=== PATIENT | female | born 1935 | race Caucasian/White ===

== ENCOUNTER 2019-02-17 20:01 | Emergency (ER) | payer MEDICARE ==
--- OUTSIDE RECORDS SUMMARY | 2019-02-17 20:31 | XMS REPORT | Continuity of Care Document ---
:1935 External Reference #:[id number] Author Name Glenis Mohr Care Team Providers Name Role Phone Nishant Shea MD Primary Care Physician Unavailable Payers Date Identification Numbers Payment Provider Subscriber Expires: 2016 Policy Number: [id number] Medicare [employer] PayID: [id number] [address] [place] [address] Expires: 2016 Policy Number: [id number] [employer] Seb Gonz[employer] Group Number: [id number] [address] Group Name: [place] [address] PayID: [id number] Effective: 2016 Policy Number: [id number] [employer] Group Number: [id number] [address] PayID: [id number] [place] [address] Problems Active Problems Provider Date Cervical spondylosis with myelopathy Wilver Tai M.D. Onset: 05/02/2013 Low back pain Wilver Tai M.D. Onset: 05/02/2013 Benign essential hypertension Marjan Weston M.D. Onset: 08/21/2013 Pure hypercholesterolemia Marjan Weston M.D. Onset: 08/21/2013 Obesity Marjan Weston M.D. Onset: 08/21/2013 Spinal stenosis in cervical region Wilver Tai M.D. Onset: 09/11/2013 Chronic pain syndrome Wilver Tai M.D. Onset: 09/11/2013 Prosthetic arthroplasty of the hip Sylvie Beatty M.D. Onset: 05/06/2016 Cervical spondylosis without myelopathy Hardik Baird M.D. Onset: 11/11/2016 Obstructive sleep apnea syndrome Fatimah Soto MD Onset: 04/20/2017 Family History Date Family Member(s) Observation Comments General Heart Disease General Hypertension General Stroke Father Heart Disease Father due to IN () Mother due to IN () Mother due to lung problems () Social History Type Date Description Comments Sex Unknown Marital Status Lives With spouse Occupation Retired Tobacco Use Start: Unknown End: Former Cigarette Smoker 1 30 years Pack Daily Smoking Status Reviewed: 02/06/19 Former Cigarette Smoker 1 30 years Pack Daily ETOH Use Consumes 1 glass of wine per day Tobacco Use Start: Unknown End: Patient is a former smoker Unknown Recreational Drug Use Denies Drug Use Exercise Type/Frequency Exercises regularly Allergies, Adverse Reactions, Alerts Active Allergies Reaction Severity Comments Date Lyrica Urticaria 02/22/2013 Clonidine patch rash, the pill form as well 08/19/2016 Gabapentin 02/22/2018 Medications Active Medications SIG Qnty Indications Ordering Provider Date Levothyroxine Sodium 1 by mouth every Unknown day 88mcg Tablets Zolpidem Tartrate 1 tab at bedtime Unknown 5mg for sleep Tablets Aspirin Adult Low Dose 1 by mouth every Unknown day 81mg Tablets Tramadol HCL 1-2 tabs qhs Nishant Shea MD 50mg Tablets Tylenol Extra Strength 4-5tabs by mouth Unknown qhs 500mg Tablets Benadryl 1 tab by mouth at Unknown 50mg Tablets night as needed Omeprazole 1 by mouth every Unknown 20mg Capsules day DR Amoxicillin take 4 pills, 2 g Unknown 500mg 1 hour before Capsules dental or gi procedure Vitamin D3 Complete 1 by mouth every Unknown day (during winter Tablets ) Ibuprofen 1 tab by mouth Unknown 800mg Tablets every 8 hours as needed with food Lisinopril Take 1 Tablet By Unknown 10mg Tablets Mouth Every Day Rosuvastatin Calcium 1/2 tab daily Nishant Shea MD 20mg Tablets Calcium 600 1 by mouth every Unknown 600mg Tablets day Vitamin B Complex 1 by mouth every Unknown day Tablets History Medications Avapro 1 by mouth every Walsh, 10/17/2015 - 150mg Tablets day LUNA Arroyo 12/28/2016 Gabapentin 1 by mouth every 90caps Hardik Canales 05/14/2015 - 100mg Capsules night at bedtime Tasha Echavarria 10/23/2015 for 3 days then 2 by mouth every night at bedtime for 1 week then 3 by mouth qhs Tramadol HCL 1 by mouth every 40tabs Tana 11/13/2014 - 50mg Tablets 4-6 hour as needed Dave 05/13/2015 Tasha Super B/C 1 cap po daily Hardik Canales 11/07/2013 - Capsules Tasha Echavarria 10/22/2015 Aspirin Ec Low Dose 1 po qd Hardik Canales 02/22/2013 - 81mg Tasha Echavarria 12/28/[address] Iron 1 by mouth every Unknown - Tablets day 02/05/2016 Vitamin C 1 by mouth every Unknown - 500mg Capsules day 11/09/2016 Calcium + D3 1 by mouth every Unknown - [id number] day 12/28/2016 Tablets Zoloft 1 by mouth every Ida, - 50mg Tablets day MD Victor M 06/03/2016 B Complex 1 tablet po daily Unknown - prn 12/28/2016 Probiotic Unknown - 06/03/2016 Iron 1 po qd Unknown - 45mg 11/02/2016 Vitamin B12 1 by mouth every Unknown - 1000mcg Tablets ER day prn 12/28/2016 Vitamin D3 1 by mouth every Unknown - 1000Unit Chewtabs day 12/28/2016 Fish Oil 1 po qd Unknown - 1200mg 11/09/2016 Clonidine HCL apply one patch Unknown - 0.1mg/24HR once per week 08/18/2016 Patches Weekly Amoxicillin take 2000mg prior Unknown - 500mg Tablets to dental surgery 11/10/2016 Malik Acidophilus daily Unknown - Probiotic 12/28/2016 Clonidine HCL 1 by mouth qd Unknown - 0.1mg Tablets 11/10/2016 Avapro 1 by mouth every Unknown - 150mg Tablets day Unknown Irbesartan 1 by mouth every Unknown - 150mg Tablets day Unknown Escitalopram Oxalate 1 by mouth every Unknown - 5mg day 01/07/2017 Tablets Simvastatin 1/2 tab by mouth Unknown - 20mg Tablets every day Unknown Ambien 1 per day Unknown - 5mg Tablets Unknown Vitamin C 1 by mouth every Unknown - [id number] day as needed 06/05/2018 Capsules Vitamin B12 take one Unknown - Tablets Sub capsule/tablet 06/05/2018 daily sublingually GNP Nasal [place] 1 drop in each Unknown - 0.05% Solution nostril twice a 06/05/2018 day Sucralfate 1 by mouth every Unknown - 1gm Tablets day Unknown Diphenhydramine HCL take by mouth one Unknown - 50mg hour before ct Unknown Capsules scan Atorvastatin Calcium take 1 tablet at Unknown - 20mg bedtime Unknown Tablets Amoxicillin take 1 tab by Unknown - 500mg Tablets mouth every 12 06/05/2018 hours Escitalopram Oxalate 1/2 po qd 30tabs Unknown - 5mg 05/02/2014 Tablets Levothyroxine Sodium 1 po qd 90tabs Unknown - 88mcg 05/15/2014 Tablets Zolpidem Tartrate 1 tab at bedtime 30tabs Unknown - 5mg Tablets 12/28/2016 Irbesartan 1 by mouth every 90tabs aMrjan Weston, - 300mg Tablets day M.D. 10/29/2014 Tylenol/Codeine #3 prn pain Unknown - 06/28/2013 Tylenol Extra Strength 3-4 tablet po at 100tab Unknown - 500mg bedtime for pain s 12/28/2016 Tablets Multivitamins 1 capsule carlos;y 30caps Unknown - Capsules 12/28/2016 Vitamin B Complex 1 po qd 30tabs Unknown - Tablets 06/28/2013 Vitamin B12 1 po qd Unknown - 1000mcg Tablets ER 05/02/2014 Vitamin D po occasional 30caps Unknown - 1000Unit Capsules 10/23/2015 Tramadol HCL 1-3 tablets qhs M54.5 Unknown - 50mg Tablets 12/28/2016 Atorvastatin Calcium take 1 tablet at 90tabs Unknown - 20mg bedtime 08/18/2013 Tablets Omeprazole 1 po qd 90caps Unknown - 20mg Capsules DR 11/02/2016 Atorvastatin 1 po qd 30tabs Unknown - 40mg Tablets 09/02/2014 Diphenhydramine HCL take one capsule 2caps Unknown - 50mg qd 09/04/2014 Capsules Vitamin C/Jeannie Hips 1 po qd Unknown - 1000mg 11/07/2013 Tablets Fish Oil 1 po qd 90caps Unknown - 1000mg Capsules 10/29/2014 Levothyroxine Sodium 1 tab po daily Unknown - 100mcg 12/28/2016 Tablet Escitalopram Oxalate 1 tab by mouth Unknown - 5mg every day 02/05/2016 Tablets Methylprednisolone 1 ML as directed Unknown - Acetate 05/13/2015 80mg/ml Diphenhydramine HCL take one capsule Unknown - 50mg by mouth at 12/28/2016 Capsules bedtime Simvastatin 1 by mouth every Nishant Shea MD - 20mg Tablets day 12/28/2016 Avapro one by mouth daily Neirynck, - 300mg Capsules MACKENZIE Parada 02/05/2016 Sulfamethoxazole/Trimetho 1 by mouth twice a Unknown - prim DS day 10/22/2015 800-160mg Tablets Amoxicillin 4 tablets 1 hour Unknown - 500mg Capsules before dental work 02/05/2016 Ibuprofen as needed Unknown - 800mg Capsules 12/28/2016 Vitamin B12 1 by mouth every Unknown - 1000mcg Tablets day 02/05/2016 Medications Administered in Office Medication SIG Qnty Indications Ordering Provider Date Inj, Regadenoson, 0.1 MG Mj Hernadez Acosta, M.D., 06/12/2016 Injection PETER ZIMMER Technetium TC 99M Mj Acosta M.D., 06/12/2016 Tetrofosmin, Per Unit Dose FACPETER Doe Up To 40 Millicuries Injection Vital Signs Date Vital Result Comment 02/06/2019 12:51pm Height 67.75 inches 5'7.75" Weight 168.00 lb BP Systolic Sitting 126 mmHg BP Diastolic Sitting 70 mmHg Pain Level 6 BMI (Body Mass Index) 25.7 kg/m2 11/30/2018 10:29am Height 67.75 inches 5'7.75" Weight 168.25 lb Heart Rate 78 /min BP Systolic Sitting 150 mmHg BP Diastolic Sitting 86 mmHg Respiratory Rate 18 /min BMI (Body Mass Index) 25.8 kg/m2 06/06/2018 11:21am Height 67.75 inches 5'7.75" Weight 173.00 lb Heart Rate 70 /min BP Systolic Sitting 158 mmHg Lue reg cuff BP Diastolic Sitting 70 mmHg Lue reg cuff Respiratory Rate 16 /min O2 % BldC Oximetry 96 % On Ra BMI (Body Mass Index) 26.5 kg/m2 05/04/2018 10:50am Weight 176.00 lb Heart Rate 96 /min BP Systolic Sitting 170 mmHg BP Diastolic Sitting 96 mmHg Respiratory Rate 18 /min Body Temperature 97.9 F 02/22/2018 11:35am Height 67.75 inches 5'7.75" Weight 179.00 lb Heart Rate 76 /min BP Systolic 140 mmHg BP Diastolic 78 mmHg Respiratory Rate 18 /min Body Temperature 98.9 F BMI (Body Mass Index) 27.4 kg/m2 10/22/2017 3:42pm Height 67.75 inches 5'7.75" Weight 184.25 lb Heart Rate 74 /min BP Systolic 140 mmHg BP Diastolic 90 mmHg BMI (Body Mass Index) 28.2 kg/m2 04/20/2017 10:53am Height 67.75 inches 5'7.75" Weight 188.00 lb Heart Rate 64 /min BP Systolic Sitting 124 mmHg BP Diastolic Sitting 66 mmHg Respiratory Rate 14 /min O2 % BldC Oximetry 98 % BMI (Body Mass Index) 28.8 kg/m2 03/10/2017 10:02am Height 67.75 inches 5'7.75" Weight 186.00 lb Heart Rate 74 /min BP Systolic Sitting 124 mmHg BP Diastolic Sitting 86 mmHg Respiratory Rate 16 /min O2 % BldC Oximetry 96 % room air BMI (Body Mass Index) 28.5 kg/m2 01/07/2017 1:32pm Height 67.75 inches 5'7.75" Weight 191.00 lb Heart Rate 78 /min BP Systolic Sitting 140 mmHg BP Diastolic Sitting 80 mmHg Pain Level 5 BMI (Body Mass Index) 29.3 kg/m2 12/29/2016 11:17am Height 67.75 inches 5'7.75" Weight 190.00 lb Heart Rate 67 /min BP Systolic Sitting 142 mmHg BP Diastolic Sitting 84 mmHg Respiratory Rate 16 /min O2 % BldC Oximetry 96 % BMI (Body Mass Index) 29.1 kg/m2 11/11/2016 4:16pm Height 67.75 inches 5'7.75" Weight 191.00 lb Heart Rate 68 /min BP Systolic Sitting 128 mmHg BP Diastolic Sitting 68 mmHg Respiratory Rate 16 /min Pain Level 2 BMI (Body Mass Index) 29.3 kg/m2 08/19/2016 11:57am Height 67.75 inches 5'7.75" Weight 195.00 lb Heart Rate 72 /min BP Systolic Sitting 120 mmHg BP Diastolic Sitting 82 mmHg Respiratory Rate 14 /min BMI (Body Mass Index) 29.9 kg/m2 05/06/2016 10:03am Height 67.75 inches 5'7.75" Weight 205.00 lb Heart Rate 66 /min BP Systolic 151 mmHg BP Diastolic 73 mmHg BMI (Body Mass Index) 31.4 kg/m2 02/06/2016 12:40pm Height 68 inches 5'8" Weight 202.00 lb with sandals BP Systolic Sitting 144 mmHg La reg cuff BP Diastolic Sitting 100 mmHg La reg cuff BP Systolic Standing 142 mmHg LA reg cuff BP Diastolic Standing 96 mmHg LA reg cuff BMI (Body Mass Index) 30.7 kg/m2 10/23/2015 2:56pm Height 68 inches 5'8" Weight 200.00 lb Heart Rate 76 /min BP Systolic Sitting 120 mmHg BP Diastolic Sitting 88 mmHg Respiratory Rate 14 /min BMI (Body Mass Index) 30.4 kg/m2 05/14/2015 2:04pm Height 68 inches 5'8" Weight 206.00 lb Heart Rate 76 /min BP Systolic Sitting 128 mmHg BP Diastolic Sitting 82 mmHg Respiratory Rate 14 /min BMI (Body Mass Index) 31.3 kg/m2 11/13/2014 11:20am Height 68 inches 5'8" Weight 204.00 lb Pain Level 0 BMI (Body Mass Index) 31.0 kg/m2 10/30/2014 3:47pm Height 68 inches 5'8" Weight 204.00 lb Heart Rate 64 /min BP Systolic Sitting 158 mmHg BP Diastolic Sitting 88 mmHg Respiratory Rate 16 /min BMI (Body Mass Index) 31.0 kg/m2 09/26/2014 10:22am Height 68 inches 5'8" Weight 204.00 lb with shoes Heart Rate 66 /min regular BP Systolic Sitting 148 mmHg left arm reg cuff BP Diastolic Sitting 78 mmHg left arm reg cuff BP Systolic Standing 146 mmHg left arm reg cuff BP Diastolic Standing 76 mmHg left arm reg cuff Respiratory Rate 18 /min BMI (Body Mass Index) 31.0 kg/m2 09/18/2014 12:06pm Height 68 inches 5'8" Weight 204.00 lb Pain Level 0 BMI (Body Mass Index) 31.0 kg/m2 09/05/2014 3:21pm Height 68 inches 5'8" Weight 204.00 lb Heart Rate 64 /min BP Systolic Sitting 144 mmHg Ra reg cuff BP Diastolic Sitting 84 mmHg Ra reg cuff BP Systolic Standing 142 mmHg BP Diastolic Standing 80 mmHg Respiratory Rate 16 /min BMI (Body Mass Index) 31.0 kg/m2 08/22/2014 10:55am Height 68 inches 5'8" Weight 200.00 lb Pain Level 0 BMI (Body Mass Index) 30.4 kg/m2 05/29/2014 12:24pm Height 68 inches 5'8" Weight 200.00 lb Heart Rate 70 /min BP Systolic 152 mmHg BP Diastolic 85 mmHg BMI (Body Mass Index) 30.4 kg/m2 05/29/2014 11:37am Height 67 inches 5'7" 05/15/2014 2:03pm Height 67 inches 5'7" Weight 203.00 lb Heart Rate 68 /min BP Systolic Sitting 180 mmHg BP Diastolic Sitting 90 mmHg Respiratory Rate 68 /min BMI (Body Mass Index) 31.8 kg/m2 11/07/2013 1:45pm Height 67 inches 5'7" Weight 196.00 lb Heart Rate 80 /min BP Systolic Sitting 150 mmHg BP Diastolic Sitting 80 mmHg Respiratory Rate 16 /min BMI (Body Mass Index) 30.7 kg/m2 09/11/2013 2:35pm Height 67 inches 5'7" Weight 198.00 lb BP Systolic 130 mmHg BP Diastolic 80 mmHg Pain Level 1-2 low back, legs BMI (Body Mass Index) 31.0 kg/m2 08/21/2013 1:14pm Height 67 inches 5'7" Weight 195.00 lb without shoes Heart Rate 8074 /min sit and stand HR reg BP Systolic Sitting 172 mmHg R arm reg cuff BP Diastolic Sitting 80 mmHg R arm reg cuff BP Systolic Standing 166 mmHg R arm reg cuff BP Diastolic Standing 72 mmHg R arm reg cuff BP Systolic Recheck 200 mmHg BP Diastolic Recheck 80 mmHg Respiratory Rate 17 /min BMI (Body Mass Index) 30.5 kg/m2 06/28/2013 8:36am Heart Rate 76 /min BP Systolic Sitting 120 mmHg BP Diastolic Sitting 70 mmHg Respiratory Rate 18 /min 06/02/2013 12:55pm Height 68 inches 5'8" Weight 198.00 lb BP Systolic 132 mmHg BP Diastolic 68 mmHg Pain Level 4 left hip/buttock BMI (Body Mass Index) 30.1 kg/m2 05/02/2013 9:12am Height 68 inches 5'8" Weight 198.00 lb BP Systolic 168 mmHg BP Diastolic 78 mmHg Pain Level 6 back BMI (Body Mass Index) 30.1 kg/m2 02/22/2013 1:48pm Heart Rate 52 /min BP Systolic Sitting 140 mmHg BP Diastolic Sitting 82 mmHg Respiratory Rate 15 /min Results Test Date Facility Test Result H/L Range Note Laboratory test 03/19/2016 [facility] Ast (Sgot) 23 U/L N 13- [address] [place] [address] [phone] Lipid Profile 03/19/2016 [facility] Triglycerides 102 mg/dL N 2 (Trig/Chol/HDL) [address] [place] [address] [phone] Cholesterol 179 mg/dL N 3 HDL Cholesterol 69.7 mg/dL N 4 LDL Cholesterol 89 mg/dL N 5 Lipid Profile 09/21/2014 [facility] Triglycerides 87 mg/dL N 6, 7 (Trig/Chol/HDL) [address] [place] [address] [phone] Cholesterol 171 mg/dL N 8 HDL Cholesterol 78.5 mg/dL N 9 LDL Cholesterol 75 mg/dL N 10 Laboratory test 09/11/2014 [facility] Lipoprotein 49 mg/dL Abnormal <=30 [address] [place] [address] [phone] Alt 22 U/L N 7-52 Basic Metabolic Panel 09/11/2014 [facility] Sodium 139 mmol/L N 133-[address] [place] [address] [phone] Potassium 4.6 mmol/L N 3.5-5.0 Chloride 107 mmol/L N 101-111 Co2 Carbon Dioxide 26 mmol/L N 22-32 Anion Gap 6 mmol/L N 2-11 Glucose 93 mg/dL N 70-100 Blood Urea Nitrogen 19 mg/dL N 6-24 Creatinine 0.89 mg/dL N 0.51-0.95 BUN/Creatinine Ratio 21.3 High 8-20 Calcium 9.6 mg/dL N 8.6-10.3 Egfr Non- 61.5 N >60 Egfr 79.1 N >60 12 1 FASTING on zocor 20 Copy Result to: NISHANT SHEA ([id number]) 2 Desirable <150 Borderline high 150-199 High 200-499 Very High >500 3 Desirable <200 Borderline high 200-239 High >239 4 Low <40 Desirable: 40-60 High: >60 5 Desirable: <100 mg/dL Near Optimal: 100-129 mg/dL Borderline High: 130-159 mg/dL High: 160-189 mg/dL Very High: >189 mg/dL 6 FASTING 7 Desirable <150 Borderline high 150-199 High 200-499 Very High >500 8 Desirable <200 Borderline high 200-239 High >239 9 Low <40 Desirable: 40-60 High: >60 10 Desirable <100 Near Optimal 100-129 Borderline high 130-159 High 160-189 Very High >189 11 Test Performed by: [address] [address] Ballistics Expert: Darnell Arizmendi M.D. 12 Because ethnic data is not always readily available, this report includes an eGFR for both -Americans and non- Americans. The National Kidney Disease Education Program (NKDEP) does not endorse the use of the MDRD equation for patients that are not between the ages of 18 and 70, are , have extremes of body size, muscle mass, or nutritional status, or are non- or non-. According to the National Kidney Foundation, irrespective of diagnosis, the stage of the disease is based on the level of kidney function: Stage Description GFR(mL/min/1.73 m(2)) 1 Kidney damage with normal or decreased GFR 90 2 Kidney damage with mild decrease in GFR 60-89 3 Moderate decrease in GFR 30-59 4 Severe decrease in GFR 15-29 5 Kidney failure <15 (or dialysis) Procedures Date Code Description Status 04/13/2017 76754 Spirometry Incl Graphic Record Completed 02/16/2017 60991 Sleep Study Unattended,HRT Rate,Oxygen Sat,Resp Completed Effort/Airflow 12/29/2016 44171 Diffusing Capacity Completed 12/29/2016 26664 Plethysmography Determination Lung Volumes & Per Airway Completed Resist 12/29/2016 08556 Pulmonary Function><Bronchodil Completed 06/12/2016 01994 Stress Test Completed 06/12/2016 81628 Myocardial Perfusion Imaging Tomographic (Spect) Multiple Completed Studies 02/06/2016 85721 EKG Tracing & Interpretation Completed 09/05/2014 61216 EKG Tracing & Interpretation Completed 08/10/2014 84939 Carpal Tunnel Release Completed 08/10/2014 63691 Carpal Tunnel Release Completed 05/29/2014 47719 Rad Exam; Hand Comp Completed 05/29/2014 68316 Rad Exam; Hand Comp Completed 01/25/2014 97777 Nerve Conduction 07-08 Studies Completed 09/14/2013 98341 ECHO Transthoracic, Real-Time 2D With Doppler And Color Completed Flow 08/21/2013 02186 EKG Tracing & Interpretation Completed Encounters Type Date Location Provider Dx Diagnosis Office Visit 02/06/2019 Neurosurgery Cecelia Manjarrez, M47.816 Spondylosis w/ o 1:00p [facility] myelopathy or radiculopathy, lumbar region Office Visit 11/30/2018 [facility] Romario Canales M54.42 Lumbago with 10:45a [facility] Echavarria M.D. sciatica, left side Office Visit 06/06/2018 Pulmonology And Fatimah Soto, G47.33 Obstructive sleep 11:30a Sleep Services Of [facility] lauren (adult) [facility] (pediatric) J98.4 Other disorders of lung Office Visit 05/04/2018 [facility] Kelly Anthony R10.9 Unspecified 11:00a [facility] Mcdaniel MD abdominal pain Office Visit 02/22/2018 [facility] Warren Perez K80.10 Calculus of 11:30a [facility] [place] M.D. gallbladder w chronic cholecyst w/o obstruction Office Visit 10/22/2017 Neurohospitalist Hardik Canales M47.816 Spondylosis w/o 3:30p Clinic naty Echavarria or Tasha radiculopathy, lumbar region M47.812 Spondylosis w/o myelopathy or radiculopathy, cervical region Office Visit 04/20/2017 10:45a Pulmonology And Fatimah R06.02 Shortness of Sleep Services [facility] breath [facility] R09.89 Oth symptoms and signs involving the circ and resp systems G47.33 Obstructive sleep apnea (adult) (pediatric) Office Visit 03/10/2017 10:00a Pulmonology And Fatimah G47.33 Obstructive sleep Sleep Services Of [facility] apnea (adult) [facility] (pediatric) R09.89 Oth symptoms and signs involving the circ and resp systems R06.02 Shortness of breath Z87.891 Personal history of nicotine dependence Office Visit 01/07/2017 1:00p Neurosurgery Hardik Baird M54.5 Low back pain [facility] [place] Office Visit 12/29/2016 11:30a Pulmonology And Fatimah R06.02 Shortness of Sleep Services Of [facility] breath [facility] R06.83 Snoring R40.0 Somnolence R68.2 Dry mouth, unspecified G89.29 Other chronic pain Office Visit 11/11/2016 Neurosurgery Hardik M47.812 Spondylosis w/o 3:50p Services [facility] Baird M.D. myelopathy or AT [place] radiculopathy, cervical region Office Visit 08/19/2016 [facility] Hardik Canales M47.812 Spondylosis w/o 11:45a [facility] Echavarria M.D. myelopathy or radiculopathy, cervical region Office Visit 05/06/2016 Orthopedic Sylvie Beatty, M25.552 Pain in left hip 10:00a Services Of M.D. C.M.A. M25.551 Pain in right hip Z96.642 Presence of left artificial hip joint M54.5 Low back pain R53.82 Chronic fatigue, unspecified M70.62 Trochanteric bursitis, left hip M70.61 Trochanteric bursitis, right hip Office Visit 02/06/2016 1:00p [facility] Marjan Weston, R06.02 Shortness of Of [employer] Machine Operator M.D. breath I63.9 Cerebral infarction, unspecified I47.1 Supraventricular tachycardia I10 Essential (primary) hypertension E78.0 Pure hypercholesterolemia K21.0 Gastro-esophageal reflux disease with esophagitis Office Visit 10/23/2015 [facility] Hardik Canales M47.812 Spondylosis w/o 2:45p Neurologic Tasha Echavarria myelopathy or Services Of [facility] radiculopathy, cervical region Office Visit 05/14/2015 Bondlauren Canales M47.812 Spondylosis w/o 1:45p Neurologic Tasha Echavarria myelopathy or Services Of [facility] radiculopathy, cervical region N39.42 Incontinence without sensory awareness Office Visit 11/13/2014 Orthopedic Tana V54.89 Aftercare, 11:15a Services Of Tasha Acosta Orthopedic Other C.M.A. Office Visit 10/30/2014 Bondlau[facility] Echavarria, 721.0 Spondylosis 3:30p Neurologic Tasha Cervical W/O Services Of [facility] Myelopathy Office Visit 09/26/2014 [place] Kelley 401.1 Hypertension 10:30a Cardiology Of Benign [employer] Machine Operator 278.00 Obesity Unspec 272.0 Hypercholesterolemia Pure 786.05 Shortness Of Breath Office Visit 09/05/2014 3:30p [facility] Marjan Weston, 401.1 Hypertension Of [employer] Machine Operator M.D. Benign 272.0 Hypercholesterolemia Pure 278.00 Obesity Unspec Office Visit 05/29/2014 11:00a Orthopedic Tana 354.0 Carpal Tunnel Services Of Tasha Acosta Syndrome C.M.A. 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 Cervical W/O Myelopathy 354.0 Carpal Tunnel Syndrome Office Visit 09/11/2013 2:20p Neurosurgery Wilver Alvarez 723.0 Stenosis Spinal [facility] Tai M.D. Cervical Region 338.4 Chronic Pain Syndrome Office Visit 08/21/2013 1:15p [facility] Marjan Weston, 401.1 Hypertension Of [facility] [place] Benign 272.0 Hypercholesterolemia Pure 278.00 Obesity Unspec Office Visit 06/28/2013 8:30a [facility] Romario Canales 723.0 Stenosis Spinal [facility] Echavarria M.D. 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 Cervical W/ Myelopathy Office Visit 05/02/2013 9:20a Neurosurgery Wilver Alvarez 721.1 Spondylosis Services [facility] Tai M.D. 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 Syndrome 724.2 Lumbago Office Visit 05/14/2009 3:30p Neurosurgery Stuart Morales 723.0 Stenosis Spinal [facility] Hernández M.D. Cervical Region 721.0 Spondylosis Cervical W/O Myelopathy Office Visit 05/09/2009 9:00a Radha Morales 723.0 Stenosis Spinal [facility] Hernández M.D. Cervical Region 721.0 Spondylosis Cervical W/O Myelopathy Office Visit 11/14/2007 DO Not Use [place], 780.52 Insomnia 2:15p Tita Navarrete M.D. Unspecified 276.8 Hypopotassemia 401.1 Hypertension Benign 300.00 Anxiety State Unspec Office Visit 11/09/2007 DO Not Use Clarisa 924.10 Contusion Lower Leg 1:45p Tita Varn, N.P. 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 Goiter Other Cause W/O Crisis Or Storm Office Visit 04/15/2007 DO Not Use [place], 785.1 Palpitations 1:45p Tita Navarrete M.D. 401.1 Hypertension Benign Office Visit 03/16/2007 DO Not Use [place], 782.0 Skin Sensation 10:45a Tita Navarrete M.D. Disturbance 627.2 Menopausal Or Female Climacteric State, Symptomatic 401.1 Hypertension Benign Office Visit 02/07/2007 DO Not Use [place], 401.1 Hypertension 10:15a Tita Navarrete M.D. Benign 286.9 Coagulation Defects Other & Unspec 436 Cerebrovascular Disease Acute Ill-Defined 780.52 Insomnia Unspecified Office 10/08/2006 DO Not Use [place], 272.0 Hypercholesterolemia Visit 1:00p Tita Navarrete M.D. Pure 401.1 Hypertension Benign 530.81 Esophageal Reflux Office 08/10/2006 DO Not Use [place], 272.0 Hypercholesterolemia Visit 2:30p Tita Navarrete M.D. Pure 401.1 Hypertension Benign 436 Cerebrovascular Disease Acute Ill-Defined 780.52 Insomnia Unspecified Office Visit 06/18/2006 DO Not Use [place], 401.1 Hypertension 1:30p Tita Navarrete M.D. Benign 272.0 Hypercholesterolemia Pure 436 Cerebrovascular Disease Acute Ill-Defined Office Visit 06/01/2006 DO Not Use [place], 436 Cerebrovascular 4:00p Tita Navarrete M.D. Disease Acute Ill-Defined 401.1 Hypertension Benign 285.9 Anemia Unspec 780.52 Insomnia Unspecified Plan of Treatment Future Appointment(s):03/08/2019 1:30 pm - VIC Blanchard at [facility]06/08/2019 1:45 pm - Fatimah Soto MD at [facility]02/06/2019 - Cecelia Manjarrez, PAM47.816 Spondylosis w/o myelopathy or radiculopathy, lumbar regionFollow up:Follow up in 2 weeks after imaginig completed
--- OUTSIDE RECORDS SUMMARY | 2019-02-17 20:31 | XMS REPORT | Continuity of Care Document ---
:1935 External Reference #:[id number] Author Name Glenis Mohr Care Team Providers Name Role Phone Nishant Shea MD Primary Care Physician Unavailable Payers Date Identification Numbers Payment Provider Subscriber Expires: 2016 Policy Number: [id number] Medicare Aditi Mart Fariba PayID: [id number] [address] [place] [address] Expires: 2016 Policy Number: [id number] [employer] Seb Gonzalezy Group Number: [id number] [address] Group Name: [place] [address] PayID: [id number] Effective: 2016 Policy Number: [id number] [employer] Medicare dAiti Mart Fariba Group Number: [id number] [address] PayID: [id number] [place] [address] Problems Active Problems Provider Date Cervical spondylosis with myelopathy Wilver Tai M.D. Onset: 05/02/2013 Low back pain Wilver Tai M.D. Onset: 05/02/2013 Benign essential hypertension Marjan Weston M.D. Onset: 08/21/2013 Pure hypercholesterolemia Marjan Weston M.D. Onset: 08/21/2013 Obesity Marjan Weston M.D. Onset: 08/21/2013 Spinal stenosis in cervical region iWlver Tai M.D. Onset: 09/11/2013 Chronic pain syndrome Wilver Tai M.D. Onset: 09/11/2013 Prosthetic arthroplasty of the hip Sylvie Beatty M.D. Onset: 05/06/2016 Cervical spondylosis without myelopathy Hardik Baird M.D. Onset: 11/11/2016 Obstructive sleep apnea syndrome Fatimah Soto MD Onset: 04/20/2017 Family History Date Family Member(s) Observation Comments General Heart Disease General Hypertension General Stroke Father Heart Disease Father due to NC () Mother due to NC () Mother due to lung problems () [...] D3 1 by mouth every Unknown - [id number] day 12/28/2016 Tablets Zoloft 1 by mouth [...] C 1 by mouth every Unknown - [phone] day as needed 06/05/2018 Capsules Vitamin B12 take one Unknown - Tablets Sub capsule/tablet 06/05/2018 daily sublingually GNP Nasal Hannah 1 drop in each Unknown - 0.05% [...] 12/28/2016 Irbesartan 1 by mouth every 90tabs Marjan Weston, - 300mg Tablets day M.D. 10/29/2014 [...] Result H/L Range Note Laboratory test 03/19/[address] [facility] Ast (Sgot) 23 U/L N 13- [address] [place] [address] [phone] Lipid Profile 03/19/[address] [facility] Triglycerides 102 mg/dL N 2 (Trig/Chol/HDL) [address] [place] [address] [phone] Cholesterol 179 mg/dL N 3 HDL Cholesterol 69.7 mg/dL N 4 LDL Cholesterol 89 mg/dL N 5 Lipid Profile 09/21/[address] [facility] Triglycerides 87 mg/dL N 6, 7 (Trig/Chol/HDL) [address] [place] [address] [phone] Cholesterol 171 mg/dL N 8 HDL Cholesterol 78.5 mg/dL N 9 LDL Cholesterol 75 mg/dL N 10 Laboratory test 09/11/[address] [facility] Lipoprotein 49 mg/dL Abnormal <=30 [address] [place] [address] [phone] Alt 22 U/L N 7-52 Basic Metabolic Panel 09/11/[address] [facility] Sodium 139 mmol/L N 133-[address] [place] [address] [phone] Potassium 4.6 mmol/L N 3.5-5.0 Chloride 107 [...] zocor 20 Copy Result to: NISHANT SHEA ([id number]) 2 Desirable <150 Borderline high 150-199 High [...] Very High >189 11 Test Performed by: [address] [address] Meter Supervisor: Darnell Arizmendi M.D. 12 Because ethnic data [...] dialysis) Procedures Date Code Description Status 04/13/2017 65655 Spirometry Incl Graphic Record Completed 02/16/2017 64545 Sleep Study Unattended,HRT Rate,Oxygen Sat,Resp Completed Effort/Airflow 12/29/2016 26232 Diffusing Capacity Completed 12/29/2016 69540 Plethysmography Determination Lung Volumes & Per Airway Completed Resist 12/29/2016 77842 Pulmonary Function><Bronchodil Completed 06/12/2016 35629 Stress Test Completed 06/12/2016 81773 Myocardial Perfusion Imaging Tomographic (Spect) Multiple Completed Studies 02/06/2016 87522 EKG Tracing & Interpretation Completed 09/05/2014 58466 EKG Tracing & Interpretation Completed 08/10/2014 71958 Carpal Tunnel Release Completed 08/10/2014 50621 Carpal Tunnel Release Completed 05/29/2014 11384 Rad Exam; Hand Comp Completed 05/29/2014 23851 Rad Exam; Hand Comp Completed 01/25/2014 43676 Nerve Conduction 07-08 Studies Completed 09/14/2013 12175 ECHO Transthoracic, Real-Time 2D With Doppler And Color Completed Flow 08/21/2013 05656 EKG Tracing & Interpretation Completed Encounters Type Date Location Provider Dx Diagnosis Office Visit 11/30/2018 [facility] Hardik Canales M54.42 Lumbago with 10:45a Services Of [facility] Echavarria M.D. sciatica, left side Office Visit 06/06/2018 Pul[facility]ology And Fatimah Soto, G47.33 Obstructive sleep 11:30a Sleep Services Of apnea (adult) [facility] (pediatric) J98.4 Other disorders of lung Office Visit 05/04/2018 [facility] Kelly Anthony R10.9 Unspecified 11:00a Of [facility] Mcdaniel MD abdominal pain Office Visit 02/22/2018 [facility] Warren Mejía80.10 Calculus of 11:30a Of [facility] Hudson M.D. gallbladder w chronic cholecyst w/o obstruction Office Visit 10/22/2017 [facility] Hadrik Canales M47.816 Spondylosis w/o 3:30p Clinic naty Echavarria M.D. radiculopathy, lumbar region M47.812 Spondylosis w/o myelopathy or radiculopathy, cervical region Office Visit 04/20/2017 10:45a Pulmonology And Fatimah R06.02 Shortness of Sleep Services Of MD Charles breath [facility] R09.89 Oth symptoms and signs involving the circ and resp systems G47.33 Obstructive sleep apnea (adult) (pediatric) Office Visit 03/10/2017 10:00a Pulmonology And Fatimah G47.33 Obstructive sleep Sleep Services Of MD Charles apnea (adult) [facility] (pediatric) R09.89 Oth symptoms and signs involving the circ and resp systems R06.02 Shortness of breath Z87.891 Personal history of nicotine dependence Office Visit 01/07/2017 1:00p Neurosurgery Hardik Baird M54.5 Low back pain Services Of [place] Office Visit 12/29/2016 11:30a Pulmonology And Fatimah R06.02 Shortness of Sleep Services Of MD [place] breath [facility] R06.83 Snoring R40.0 Somnolence R68.2 Dry mouth, unspecified G89.29 Other chronic pain Office Visit 11/11/2016 Neurosurgery Hardik M47.812 Spondylosis w/o 3:50p Services Of [facility] Baird M.D. myelopathy or [facility] radiculopathy, cervical region Office Visit 08/19/2016 [facility] Hardik Canales M47.812 Spondylosis w/o 11:45a Services Of [place] Echavarria M.D. myelopathy or radiculopathy, cervical region Office Visit 05/06/2016 Orthopedic Sylvie Beatty, M25.552 Pain in left hip 10:00a Services Of Tasha Heredia M25.551 Pain in right hip Z96.642 Presence of left artificial hip joint M54.5 Low back pain R53.82 Chronic fatigue, unspecified M70.62 Trochanteric bursitis, left hip M70.61 Trochanteric bursitis, right hip Office Visit 02/06/2016 1:00p [facility] Marjan Weston, R06.02 Shortness of Of Logging Crew Supervisor M.D. breath I63.9 Cerebral infarction, unspecified I47.1 Supraventricular tachycardia I10 Essential (primary) hypertension E78.0 Pure hypercholesterolemia K21.0 Gastro-esophageal reflux disease with esophagitis Office Visit 10/23/2015 [facility] Can[place] M47.812 Spondylosis w/o 2:45p Neurologic Tasha Echavarria myelopathy or Services Of [facility] radiculopathy, cervical region Office Visit 05/14/2015 [facility] Can[place] M47.812 Spondylosis w/o 1:45p Romario Echavarria M.D. myelopathy or Services [facility] radiculopathy, cervical region N39.42 Incontinence without sensory awareness Office Visit 11/13/2014 Orth[facility] Tana V54.89 Aftercare, 11:15a Services Of Tasha Acosta Orthopedic Other C.M.A. Office Visit 10/30/2014 [facility] Echav[place]ria, 721.0 Spondylosis 3:30p Neurologic Tasha Cervical W/O Services Of [facility] Myelopathy Office Visit 09/26/2014 [place] VIC Kelley 401.1 Hypertension 10:30a Cardiology Of Benign Logging Crew Supervisor 278.00 Obesity Unspec 272.0 Hypercholesterolemia Pure 786.05 Shortness Of Breath Office Visit 09/05/2014 3:30p [facility] Marjan Weston, 401.1 Hypertension Of Logging Crew Supervisor M.D. Benign 272.0 Hypercholesterolemia Pure 278.00 Obesity Unspec Office Visit 05/29/2014 11:00a Orthopedic Tana 354.0 Carpal Tunnel Services Of Tasha Acosta Syndrome C.M.A. 715.14 Osteoarthrosis Localized Prim Hand Office Visit 05/15/2014 1:45p [facility] Romario Canales 721.0 Spondylosis Services Of [facility] Echavarria M.D. Cervical W/O Myelopathy 354.0 Carpal Tunnel Syndrome Office Visit 11/07/2013 1:45p [facility] Romario Canales 721.0 Spondylosis Services Of [facility] Echavarria M.D. Cervical W/O Myelopathy 354.0 Carpal Tunnel Syndrome Office Visit 09/11/2013 2:20p Neurosurgery Wilver Alvarez 723.0 Stenosis Spinal [facility] Tasha Tai Cervical Region 338.4 Chronic Pain Syndrome Office Visit 08/21/2013 1:15p [facility] Marjan Weston, 401.1 Hypertension Of [facility] Tasha Benign 272.0 Hypercholesterolemia Pure 278.00 Obesity Unspec Office Visit 06/28/2013 8:30a [facility] Romario Canales 723.0 Stenosis Spinal Services Of [facility] Echavarria M.D. 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 Cervical W/ Myelopathy Office Visit 05/02/2013 9:20a Neurosurgery Wilver Alvarez 721.1 Spondylosis Services Of [place] Tai M.D. 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 Syndrome 724.2 Lumbago Office Visit 05/14/2009 3:30p Neurosurgery Stuart Morales 723.0 Stenosis Spinal Services Of [facility] Hernández M.D. Cervical Region 721.0 Spondylosis Cervical W/O Myelopathy Office Visit 05/09/2009 9:00a Neurosurgery Stuart Morales 723.0 Stenosis Spinal Services Of [facility] Hernández M.D. Cervical Region 721.0 Spondylosis Cervical W/O Myelopathy Office Visit 11/14/2007 DO Not Use Lucia, 780.52 Insomnia 2:15p [facility] Navarrete M.D. Unspecified 276.8 Hypopotassemia 401.1 Hypertension Benign 300.00 Anxiety State Unspec Office Visit 11/09/2007 DO Not Use Clarisa 924.10 Contusion Lower Leg 1:45p [facility] Varn, N.P. Office Visit 05/02/2007 DO Not [...] - VIC Blanchard at [facility]06/08/2019 1:45 pm - Fatimah Soto MD at Pulmonology And Sleep [facility]
[2019-02-17 23:23] VITALS: BP 168/64
== END 2019-02-18 01:42 | disposition left against medical advice (07) ==
LOC: ED 20:01
DX: Z53.21 Procedure and treatment not carried out due to patient leaving prior to being seen by health care provider (principal)
CPT/HCPCS: 99282

== ENCOUNTER 2019-06-18 16:00 | Emergency (ER) | payer MEDICARE ==
--- OUTSIDE RECORDS SUMMARY | 2019-06-18 16:07 | XMS REPORT | Continuity of Care Document ---
:1935 External Reference #:[id number] Author Name Rosaline Greenwood PA-C Address [address] [place] [address] Care Team Providers Name Role Phone Nishant Shea MD Care Team Information Clinical Research Administrator [phone] Problems Active Problems Provider Date Essential hypertension Tyrel Jaimes MD Onset: 11/10/2016 Nausea Rosaline Greenwood PA-C Onset: 06/06/2019 Abdominal pain Rosaline Greenwood PA-C Onset: 06/06/2019 Ex-smoker Rosaline Greenwood PA-C Onset: 06/06/2019 Weight decreased Rosaline Greenwood PA-C Onset: 06/06/2019 Epigastric pain Rosaline Greenwood PA-C Onset: 08/22/2018 Right upper quadrant pain Rosaline Greenwood PA-C Onset: 05/19/2018 Constipation Tyrel Jaimes MD Onset: 11/10/2016 Gastroesophageal reflux disease Tyrel Jaimes MD Onset: 11/10/2016 Social History Type Date Description Comments Sex Unknown Tobacco Use Start: Unknown End: Unknown Patient is a former smoker Smoking Status Reviewed: 06/06/19 Patient is a former smoker Allergies, Adverse Reactions, Alerts Active Allergies Reaction Severity Comments Date Gabapentin Other Moderate 05/22/2016 Clonidine rash Moderate 05/11/2019 Lyrica Other Moderate 05/22/2016 Beta Adrenergic Blockers 11/06/2016 Medications Active Medications SIG Qnty Indications Ordering Date Provider Rosuvastatin Calcium hs Unknown 10mg Tablets Lisinopril Daily Unknown 10mg Tablets Amoxicillin 4 tabs at once 1 Unknown 500mg Tablets hour before procedure Diphenhydramine HCL Take 1 capsule Unknown 50mg every day by oral Capsules route. Aspirin 81 Take 1 tablet Unknown 81mg Tablets DR every day by oral route. Tramadol HCL 1-3 tabs daily as Unknown 50mg Tablets needed MDD 3 tabs Acetaminophen Extra take about 2000mg Unknown Strength at night (4-5) 500mg Tablets Levothyroxine Sodium Take 1 tablet Unknown 75mcg every day by oral Tablets route. Lisinopril Take 1 tablet Unknown 10mg Tablets every day by oral route. Zolpidem Tartrate Take 1 tablet Unknown 5mg Tablets every day by oral route. Ibuprofen prn Unknown 600mg Tablets Rosuvastatin Calcium Take 1 tablet Unknown 5mg every day by oral Tablets route. Nucynta not started yet. Unknown 50mg Tablets Fluzone High-Dose Unknown 0.5ml Marika Medications Administered in Office Medication SIG Qnty Indications Ordering Provider Date Influenza Unknown 05/15/2015 Injection Immunizations CPT Code Status Date Vaccine Lot # [id number] Given 08/01/2014 Pneumococcal Conjugate Vaccine 13 Valent For Intramuscular Use 70331 Given 03/10/2012 Tetanus, Diphtheria Toxoids/Acellular Pertussis Vaccine 7 Or > U-PneuC Given 05/25/2002 Pneumococcal Conj,Unspecified 93323 Given 05/25/2002 Pneumovax Vital Signs Date Vital Result Comment 06/06/2019 10:47am Height 68 inches 5'8" Weight 159.00 lb BP Systolic 131 mmHg BP Diastolic 83 mmHg Heart Rate 81 /min BMI (Body Mass Index) 24.2 kg/m2 08/22/2018 1:54pm Height 68 inches 5'8" Weight 178.00 lb BP Systolic 156 mmHg BP Diastolic 78 mmHg Heart Rate 76 /min BMI (Body Mass Index) 27.1 kg/m2 Results Test Acquired Date Facility Test Result H/L Range Note Basic Metabolic Panel 06/07/2019 [facility] Sodium 140 mmol/L Normal 135-145 Potassium 4.6 mmol/L Normal 3.5-5.0 Chloride 103 mmol/L Normal 101-111 Co2 Carbon Dioxide 32 mmol/L Normal 22-32 Anion Gap 5 mmol/L Normal 2-11 Glucose 103 mg/dL High 70-100 Blood Urea Nitrogen 17 mg/dL Normal 6-24 Creatinine 0.86 mg/dL Normal 0.51-0.95 BUN/Creatinine Ratio 19.8 Normal 8-20 Calcium 9.9 mg/dL Normal 8.6-10.3 Egfr Non- 63.2 >60 Egfr 76.4 >60 1 1 Because ethnic data is not always readily [...] 5 Kidney failure <15 (or dialysis) Procedures Description No Information Available Medical Devices Description No Information Available Encounters Description No Information Available Assessments Date Code Description Provider 06/06/2019 R63.4 Abnormal weight loss Rosaline Greenwood PA-C 06/06/2019 Z87.891 Personal history of nicotine dependence Rosaline Greenwood PA-C 06/06/2019 R10.10 Upper abdominal pain, unspecified [facility] Elaine 06/06/2019 R11.0 Nausea Rosaline Greenwood PA-C Plan of Treatment No Information Available Functional Status Description No Information Available Mental Status Description No Information Available Referrals Description No Information Available
--- OUTSIDE RECORDS SUMMARY | 2019-06-18 16:07 | XMS REPORT | Continuity of Care Document ---
:1935 External Reference #:[id number] Author Name Rosaline Greenwood PA-C Address [address] [place] [address] Care Team Providers Name Role Phone Nishant Shea MD Care Team Information Administrative Services Coordinator [phone] Problems Active Problems Provider Date Essential hypertension [...] CPT Code Status Date Vaccine Lot # [id number] Given 08/01/2014 Pneumococcal Conjugate Vaccine 13 Valent For Intramuscular Use 76363 Given 03/10/2012 Tetanus, Diphtheria Toxoids/Acellular Pertussis Vaccine 7 Or > U-PneuC Given 05/25/2002 Pneumococcal Conj,Unspecified 23124 Given 05/25/2002 Pneumovax Vital Signs Date Vital [...] BMI (Body Mass Index) 27.1 kg/m2 Results Description No Information Available Procedures Description No Information Available Medical Devices Description No Information Available Encounters Description No Information Available Assessments Date Code Description Provider 06/06/2019 R63.4 Abnormal weight loss Rosaline Greenwood PA-C 06/06/2019 Z87.891 Personal history of nicotine dependence Rosaline Greenwood PA-C 06/06/2019 R10.10 Upper abdominal pain, unspecified [facility] Elaine 06/06/2019 R11.0 Nausea Rosaline Greenwood PA-C Plan of Treatment 06/06/2019 - HUGO ElaineCR63.4 Abnormal weight lossNew Xrays:CT, Chest, Routine, W/ Contrast (84233), Ordered: 06/06/19CT, Abd & Pelvis W/ Contrast, Ordered: 06/06/19Z87.891 Personal history of nicotine dependenceNew Xrays:CT, Chest, Routine, W/ Contrast (12856), Ordered: 06/06/19R10.10 Upper abdominal pain, unspecifiedNew Xrays:CT, Abd & Pelvis W/ Contrast, Ordered: 06/06/19R11.0 NauseaNew Xrays:CT, Abd & Pelvis W/ Contrast, Ordered: Functional Status Description No Information Available Mental Status Description No Information Available Referrals Description No Information Available
--- OUTSIDE RECORDS SUMMARY | 2019-06-18 16:07 | XMS REPORT | Continuity of Care Document ---
:1935 External Reference #:[id number] Author Name Amish Prater M.D. Address [address] [place] [address] Care Team Providers Name Role Phone Nishant Shea MD - Internal Medicine Care Team Information Medical Office Supervisor Problems Active Problems Provider Date Vitreous degeneration Amish Prater M.D. Onset: 03/29/2014 Social History Type Date Description Comments Sex Unknown ETOH Use Denies alcohol use Tobacco Use Start: Unknown Patient has never smoked Smoking Status Reviewed: 05/25/19 Patient has never smoked Allergies, Adverse Reactions, Alerts Active Allergies Reaction Severity Comments Date Clonidine patch 10/09/2016 Inactive Allergies NKDA 03/29/2014 Medications Active Medications SIG Qnty Indications Ordering Provider Date Fluorometholone 1gtt three times 10ml Tanner Singer, OD 05/25/2019 0.1% a day both eyes Suspension x 1 week, then twice per day x 1 week Zolpidem Tartrate Unknown 5mg Tablets Tramadol HCL Unknown 50mg Tablets Irbesartan Unknown 300mg Tablets Simvastatin Unknown 20mg Tablets Ibuprofen Dann HAND STAPLER, 600mg Tablets Melissa Acetaminophen take 1-2 tablets Unknown 500mg Tablets by mouth every 6 hours as needed for pain Levothyroxine Sodium Unknown 100mcg Tablets Lisinopril Unknown 10mg Tablets Rosuvastatin Calcium Unknown 5mg Tablets Doxycycline Hyclate 1 by mouth every Unknown 100mg day Tablets Nucynta 1 by mouth twice Unknown 50mg Tablets a day as needed Pantoprazole Sodium Unknown 40mg Tablets DR [place] Description No Information Available Vital Signs Date Vital Result Comment 06/08/2019 2:37pm Intraocular Pressure Right Eye 15 mmHg Intraocular Pressure Left Eye 15 mmHg 05/25/2019 2:49pm Intraocular Pressure Right Eye 15 mmHg Intraocular Pressure Left Eye 15 mmHg Results Description No Information Available Procedures Date Code Description Status 06/08/2019 87015 Eye Exam Est Intermediate Completed 05/25/2019 07118 Eye Exam Est Intermediate Completed Medical Devices Description No Information Available Encounters Description No Information Available Assessments Date Code Description Provider 06/08/2019 H04.123 Dry eye syndrome of bilateral lacrimal glands Amish Prater M.D. 05/25/2019 H04.123 Dry eye syndrome of bilateral lacrimal glands Tanner Singer, OD 05/25/2019 Z96.1 Presence of intraocular lens Tanner Singer, OD 05/25/2019 H52.4 Presbyopia Tanner Singer, OD 05/25/2019 H43.813 Vitreous degeneration, bilateral Tanner Singer, OD Plan of Treatment 06/08/2019 - Amish Prater M.D.H04.123 Dry eye syndrome of bilateral lacrimal glandsFollow up:1 yr full Functional Status Description No Information Available Mental Status Description No Information Available Referrals Description No Information Available
[2019-06-18 16:20] VITALS: BP 152/62
--- NOTE | 2019-06-18 16:30 | UC ---
Bite Injury/Animal HPI - HPI Summary HPI Summary: CAt bite to right inner forearm on . Pt neighbor . Pt was bitten by her own cat. Pt was started on Zithromax on Wednesday, pt has had 2 doses thus far. pt family states she had "sweats" yesterday. had Tylenol at 3pm. - History of Current Complaint Chief Complaint: UCSkin Stated Complaint: CAT BITE Time Seen by Provider: 06/18/19 16:17 Hx Obtained From: Patient Hx Last Menstrual Period: post ?: No Severity Currently: Moderate Severity Initially: Moderate Pain Intensity: 7 Onset/Duration: Sudden Onset, Lasting Days Type of Bite: Animal Has Animal Been Immunized?: Yes Character: Puncture Aggravating Factor(s): Nothing Alleviating Factor(s): Nothing Associated Signs And Symptoms: Positive: Erythema Animal Available for Observation: Yes Animal Control Notified: No - Allergies/Home Medications Allergies/Adverse Reactions: Allergies Allergy/AdvReac Type Severity Reaction Status Date / Time pregabalin [From Lyrica] AdvReac Mild RED FACE Verified 06/18/19 16:24 Home Medications: Home Medications Calcium Carbonate [Calcium] 500 mg PO DAILY 06/18/19 [History Confirmed 06/18/19 ] PMH/Surg Hx/FS Hx/Imm Hx Previously Healthy: Yes - Surgical History Surgical History: Yes Surgery Procedure, Year, and Place: cataract; bilat hips; stroke; hysterectomy; carpal tunnel rt side; t&a: appy - Family History Known Family History: Positive: Hypertension - Social History Alcohol Use: Daily Alcohol Amount: 1-2 GLASSES WINE DAILY Substance Use Type: None Smoking Status (MU): Former Smoker Amount Used/How Often: 1 PPD X 30 YEARS, quit >30 years ago When Did the Patient Quit Smoking/Using Tobacco: 1984 Review of Systems All Other Systems Reviewed And Are Negative: Yes Skin: Positive: Other - erytheam, 2 puncture wounds Is Patient Immunocompromised?: No Physical Exam Triage Information Reviewed: Yes Appearance: Well-Appearing, Well-Nourished, Pain Distress Vital Signs: Initial Vital Signs Temp 99.9 F 06/18/19 16:04 Pulse 88 06/18/19 16:04 Resp 17 06/18/19 16:04 BP 152/62 06/18/19 16:04 Pulse Ox 99 06/18/19 16:04 Vital Signs Reviewed: Yes Eye Exam: Normal ENT Exam: Normal Dental Exam: Normal Respiratory Exam: Normal Cardiovascular Exam: Normal Abdominal Exam: Normal Bowel Sounds: Positive: Present Musculoskeletal Exam: Normal Neurological Exam: Normal Psychological Exam: Normal Skin: Positive: Other - large area of erythema on the forearm, no streaking, area is warm to touch. 2 small puncture wounds noted Bite Injury Course/Dx - Course Course Of Treatment: hx obtained, exam performed ,meds reviewed, area outlined in surgical marker. patient is strongly against the ER at this time. her 2 days ago. I have given the first 2 doses of augmentin and advised her to stop the z pack. advise her and family to report to ER immediately if she develops a fever, worsening erythema or streaking, or generally not responding well to treatment. - Differential Dx/Diagnosis Differential Diagnosis/HQI/PQRI: Cellulitis, Superficial Infection, Deep Space Infection Provider Diagnosis: Cat bite of forearm, Cellulitis Discharge ED - Sign-Out/Discharge Documenting (check all that apply): Patient Departure All imaging exams completed and their final reports reviewed: No Studies - Discharge Plan Condition: Stable Disposition: HOME Prescriptions: Amoxicillin/Clavulanate TAB* [Augmentin TAB 875*] 875 mg PO BID #12 tab Patient Education Materials: Animal Bite (ED), Cellulitis (ED) Referrals: Nishant Shea MD [Primary Care Provider] - Additional Instructions: take the augmentin as prescribed. report to ER if: you develop fever or increased malaise you develop worsening redness or streaking or any other worrisome symtpoms - Billing Disposition and Condition Condition: STABLE Disposition: Home - Attestation Statements Provider Attestation: I was available for consult. This patient was seen by the SATYA. The patient was not presented to, seen by, or examined by me. -Arminda
[2019-06-18] MEDS ORDERED: Amoxicillin/Clavulanate TAB* 875 MG PO ONE ×2 (16:39→16:43)
== END 2019-06-18 16:55 | disposition home or self-care (01) ==
LOC: UCEAST 16:00
DX: S51.851A Open bite of right forearm, initial encounter (principal); L03.113 Cellulitis of right upper limb; Z88.8 Allergy status to other drugs, medicaments and biological substances; Z87.891 Personal history of nicotine dependence; W55.01XA Bitten by cat, initial encounter; Y92.9 Unspecified place or not applicable
CPT/HCPCS: 99212; A9270-GY; G0463

== ENCOUNTER 2020-02-17 12:37 | Observation (INO) ==
[2020-02-17] MEDS ORDERED: NS 0.9% 1000 ml BAG 1,000 ML IV ONE (12:44)
[2020-02-17 13:24] LABS: ABS Eosinophils 0.1 10^3/ul (0-0.6); ABS Lymphocytes 0.8 10^3/ul (1.0-4.8); ABS Monocytes 0.6 10^3/ul (0-0.8); ABS Neutrophils 4.1 10^3/ul (1.5-7.7); Eosinophil % 1.3 %; Hematocrit 35 % (35-47); Lymphocyte % 13.9 %; Mean Corpuscular HGB Conc 34 g/dL (31-36); Mean Corpuscular Hemoglobin 33 pg (27-31); Mean Corpuscular Volume 96 fL (80-97); Mean Platelet Volume 8.7 fL (7.4-10.4); Platelet Count 306 10^3/uL (150-450); Red Blood Count 3.65 10^6 /uL (3.70-4.87); Red Cell Distribution Width 13 % (10-15); White Blood Count 5.6 10^3/uL (3.5-10.8)
[2020-02-17 13:38] LABS: BUN/Creatinine Ratio 14.5 (8-20); EGFR Non-African American 65.8 (>60); Potassium 3.8 mmol/L (3.5-5.0)
[2020-02-17 13:39] LABS: Albumin/Globulin Ratio 1.5 (1-3); Calcium 9.3 mg/dL (8.6-10.3); EGFR African American 79.6 (>60); Globulin 2.6 g/dL (2-4); Total Bilirubin 0.3 mg/dL (0.2-1.0); Total Protein 6.6 g/dL (6.4-8.9)
[2020-02-17 15:55] LABS: TSH Ultra Thyroid Stim Horm 3.89 mcIU/mL (0.34-5.60)
[2020-02-17 15:57] LABS: Free T4 1.25 ng/dL (0.61-1.12)
[2020-02-17 19:05] LABS: Urine Appearance Clear; Urine Bilirubin Negative (Negative); Urine Blood Negative (Negative); Urine Color Straw; Urine Glucose Negative (Negative); Urine Ketones Negative (Negative); Urine Nitrite Negative (Negative); Urine Protein Negative (Negative); Urine Specific Gravity 1.004 (1.010-1.030); Urine Urobilinogen Negative (Negative)
[2020-02-17 22:11] LABS: Activated Partial Thrombo Time 32.1 seconds (26.0-38.0); INR 1.09 (0.82-1.09)
[2020-02-17 22:41] LABS: Troponin I 0.03 ng/mL (<0.03)
[2020-02-17] MEDS: Heparin 5000 UNITS/ML 1 mL VIAL SUBCUT SCH (22:48)
[2020-02-18 01:50] LABS: Troponin I 0.03 ng/mL (<0.03)
[2020-02-18] MEDS ORDERED: Morphine 2 MG/ML SYRINGE IV ONE (03:35)
[2020-02-18 04:55] LABS: ABS Eosinophils 0.1 10^3/ul (0-0.6); ABS Lymphocytes 1.2 10^3/ul (1.0-4.8); ABS Monocytes 0.7 10^3/ul (0-0.8); ABS Neutrophils 3.2 10^3/ul (1.5-7.7); Eosinophil % 2.3 %; Hematocrit 32 % (35-47); Hemoglobin 11.1 g/dL (12.0-16.0); Lymphocyte % 23.7 %; Mean Corpuscular HGB Conc 34 g/dL (31-36); Mean Corpuscular Hemoglobin 33 pg (27-31); Mean Corpuscular Volume 96 fL (80-97); Mean Platelet Volume 8.8 fL (7.4-10.4); Nucleated Red Blood Cells % 0.1; Platelet Count 314 10^3/uL (150-450); Red Blood Count 3.38 10^6 /uL (3.70-4.87); Red Cell Distribution Width 12 % (10-15); White Blood Count 5.2 10^3/uL (3.5-10.8)
[2020-02-18 05:01] LABS: INR 1.1 (0.82-1.09)
[2020-02-18] MEDS: Heparin 5000 UNITS/ML 1 mL VIAL SUBCUT SCH ×2 (05:06→12:47)
[2020-02-18 05:12] LABS: BUN/Creatinine Ratio 14.7 (8-20); Calcium 8.8 mg/dL (8.6-10.3); EGFR African American 68.1 (>60); EGFR Non-African American 56.3 (>60); Potassium 3.6 mmol/L (3.5-5.0)
[2020-02-18 05:18] LABS: Troponin I 0.03 ng/mL (<0.03)
[2020-02-18] MEDS: Artificial Tear OPHTH.OINT 3.5 GM BOTH EYES PRN (14:03)
[2020-02-18] MEDS: Fluticasone NASAL SPRAY 50MCG 16 gm SPRAY BTL BOTH NARES SCH (14:04)
[2020-02-18] MEDS: Aspirin EC 81 mg TAB.EC (enteric coated) PO SCH (20:58)
[2020-02-18] MEDS: Enoxaparin 40 MG/0.4 ML SYR SUBCUT SCH (20:58)
[2020-02-19] MEDS: Fluticasone NASAL SPRAY 50MCG 16 gm SPRAY BTL BOTH NARES SCH (06:59)
[2020-02-19] MEDS: Artificial Tear OPHTH.OINT 3.5 GM BOTH EYES PRN (14:40)
[2020-02-19] MEDS: Aspirin EC 81 mg TAB.EC (enteric coated) PO SCH (21:28)
[2020-02-19] MEDS: Enoxaparin 40 MG/0.4 ML SYR SUBCUT SCH (21:28)
[2020-02-20] MEDS: Fluticasone NASAL SPRAY 50MCG 16 gm SPRAY BTL BOTH NARES SCH (08:00)
[2020-02-20 11:25] VITALS: BP 143/74
== END 2020-02-20 14:57 | disposition home health service (06) ==
LOC: MEDTELE 12:37 → ED 12:37 → MEDTELE 22:17
PROVIDERS: ADMIT Nurse Practitioner Family; ATTEND Internal Medicine

== ENCOUNTER 2023-01-31 06:44 | Observation (INO) ==
[2023-01-31] MEDS ORDERED: Iodixanol (CONTRAST) 320 MG/ML 100 ML SDV IV ONE (07:18)
[2023-01-31 07:39] LABS: ABS Eosinophils 0.1 10^3/uL (0.0-0.5); ABS Lymphocytes 0.9 10^3/uL (1.0-4.8); ABS Monocytes 0.5 10^3/uL (0.0-0.9); ABS Neutrophils 4.2 10^3/uL (1.5-7.6); Eosinophil % 1.5 %; Hematocrit 35.4 % (35-45); Lymphocyte % 15.6 %; Mean Corpuscular Hemoglobin 34.5 pg (27-33); Mean Corpuscular Volume 101.4 fL (80-97); Mean Platelet Volume 9.2 fL (7.5-11.2); Platelet Count 212 10^3/uL (150-450); Red Blood Count 3.49 10^6/uL (3.63-4.92); Red Cell Distribution Width 14.1 % (12-17); White Blood Count 5.6 10^3/uL (3.8-11.8)
[2023-01-31 07:48] LABS: Activated Partial Thrombo Time 31.3 seconds (26.0-38.0); INR 0.97 (0.88-1.18)
[2023-01-31 07:56] LABS: Albumin/Globulin Ratio 1.7 (1-3); Creatinine, Serum 1.07 mg/dL (0.51-0.95); Globulin 2.4 g/dL (2-4); HDL Cholesterol 69.9 mg/dL; Potassium 4.3 mmol/L (3.5-5.0); Total Bilirubin 0.5 mg/dL (0.2-1.0); Total Protein 6.4 g/dL (6.4-8.9); eGFR CKD-EPI 50.9 (>60)
[2023-01-31 08:59] LABS: Urine Appearance Clear; Urine Bilirubin Negative (Negative); Urine Blood Negative (Negative); Urine Color Yellow; Urine Glucose 2+(150 mg/dL) (Negative); Urine Ketones Negative (Negative); Urine Nitrite Negative (Negative); Urine Protein Negative (Negative); Urine Specific Gravity 1.036 (1.002-1.030); Urine Urobilinogen Negative (Negative)
[2023-01-31] MEDS ORDERED: Sulfur Hexaflouride MICROSPHR 25 MG VIAL ONE (12:16)
[2023-01-31] MEDS: Enoxaparin 30 MG/0.3 ML SYR SUBCUT SCH (13:45)
[2023-01-31] MEDS: Sulfamethox/Trimethoprim DS TAB 800/160 mg PO SCH (20:47)
[2023-02-01] MEDS: Sulfamethox/Trimethoprim DS TAB 800/160 mg PO SCH ×2 (08:08→20:18)
[2023-02-01] MEDS: Enoxaparin 30 MG/0.3 ML SYR SUBCUT SCH (09:23)
[2023-02-02] MEDS: Sulfamethox/Trimethoprim DS TAB 800/160 mg PO SCH (08:30)
[2023-02-02] MEDS ORDERED: Enoxaparin 40 MG/0.4 ML SYR SUBCUT SCH (11:00)
[2023-02-02 11:19] VITALS: BP 136/51
== END 2023-02-02 14:50 | disposition short-term general hospital (02) ==
LOC: ED 06:44 → EDHOLD 06:44 → SUATTDRO 07:54 → MEDTELE 10:24
PROVIDERS: ADMIT Internal Medicine; ATTEND Internal Medicine